=== PATIENT | female | born 1980 | race Caucasian/White ===

== ENCOUNTER 2019-08-10 09:09 | Outpatient (CLI) | payer OTHER, SELFPAY ==
--- NOTE | ~2019-08-10 | MM_ITS ---
EXAMINATION: MM screening [facility] BI w iraj HISTORY: Screening mammogram TECHNIQUE: Craniocaudal and mediolateral oblique 3-D tomosynthesis images were obtained and synthetic 2-D images were generated. CAD analysis was submitted and interpreted. COMPARISON: Comparison to multiple prior studies sequentially, with oldest reviewed study dated 07/2010. BREAST PARENCHYMAL COMPOSITION: There are scattered areas of fibroglandular density. FINDINGS: There is no evidence of suspicious mass, calcification, or architectural distortion to sugg est malignancy in either breast. There has been no suspicious interval change. IMPRESSION: 1. No mammographic evidence of malignancy. 2. Recommend routine screening mammography in one year. BI-RADS Category 1: Negative Reviewed, dictated and finalized at location A.
== END 2019-08-10 09:10 | disposition home or self-care (01) ==
LOC: ANHIMG 09:15
PROVIDERS: PCP Emergency Medicine; Visit Provider Physician Assistant
DX: Z12.31 Encounter for screening mammogram for malignant neoplasm of breast (principal)
CPT/HCPCS: 77063; 77067

== ENCOUNTER 2020-08-11 09:25 | Outpatient (CLI) | payer OTHER, SELFPAY ==
--- NOTE | ~2020-08-11 | MM_ITS ---
EXAMINATION: MM screening [facility] w [facility]aj HISTORY: Screening TECHNIQUE: Craniocaudal and mediolateral oblique 3-D tomosynthesis images were obtained and synthetic 2-D images were generated. CAD analysis was submitted and interpreted. COMPARISON: Comparison to multiple prior studies sequentially, with oldest reviewed study dated 04/2019. BREAST PARENCHYMAL COMPOSITION: The breasts are heterogeneously dense, which may obscure small masses . FINDINGS: There is no evidence of suspicious mass, calcification, or architectural distortion to sugg est malignancy in either breast. There has been no suspicious interval change. IMPRESSION: 1. No mammographic evidence of malignancy. 2. Recommend routine screening mammography in one year. BI-RADS Category 1: Negative Reviewed, dictated and finalized at location A.
== END 2020-08-11 09:26 | disposition home or self-care (01) ==
LOC: ANHIMG 09:27
PROVIDERS: PCP Emergency Medicine; Visit Provider Nurse Practitioner Obstetrics & Gynecology
DX: Z12.31 Encounter for screening mammogram for malignant neoplasm of breast (principal)
CPT/HCPCS: 77063; 77067

== ENCOUNTER 2021-07-12 18:21 | Emergency (ER) | payer OTHER, SELFPAY ==
--- NOTE | ~2021-07-12 | XR_ITS ---
EXAMINATION: XR finger 2nd LT min 2V DATE: 07/12/2021 21:11 INDICATION: Left hand second digit foreign body status post removal. TECHNIQUE: 3 views of left hand second digit were obtained. COMPARISON: Radiographs at 6:30 PM FINDINGS: Bone alignment is normal. No fracture. Joint spaces are normal. IMPRESSION: 1. No radiopaque foreign body. Reviewed, dictated and finalized at location A.
--- NOTE | ~2021-07-12 | XR_ITS ---
EXAMINATION: XR finger 2nd LT min 2V DATE: 07/12/2021 18:32 INDICATION: Left hand second digit foreign body. TECHNIQUE: 3 views of left hand second digit were obtained. COMPARISON: None. FINDINGS: Bone alignment is normal. No fracture.Joint spaces are normal. There is a 7 mm linear radio paque foreign body in the distal second digit. IMPRESSION: 1. 7 mm radiopaque foreign body in the distal second digit. Reviewed, dictated and finalized at location A.
[2021-07-12 18:23] VITALS: BP 146/80; PULSE 74; RESP 16; TEMP 36.4; O2SAT 100
--- NOTE | 2021-07-12 19:39 | PC.NURSE ---
Called for room x 1.
[2021-07-12] MEDS: TETANUS,DIPHTHERIA,AC PERTUSSIS ADULT (0.5 ML) BOOSTRIX IM (20:24)
--- NOTE | 2021-07-12 21:35 | ED.SKABFB ---
HPI - Skin/Abscess/Foreign Bdy General Chief complaint: Skin/Abscess/Foreign Body Stated complaint: needle stuck in finger Time Seen by Provider: 07/12/21 19:50 History of Present Illness HPI narrative: Patient is a 41-year-old female who presents ER after getting a sewing needle stuck in her left index finger. She was quilting when it occurred. No numbness or tingling. Does have throbbing pain at the tip of her finger. She is right-hand dominant. 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 Tetanus is not up-to-date. Related Data Allergies Allergy/AdvReac Type Severity Reaction Status Date / Time HYDROCODONE BIT Allergy Mild VOMITING Uncoded 06/17/15 13:00 TRAMADOL HCL Allergy Mild HIVES Uncoded 06/17/15 13:00 Review of Systems Musculoskeletal: Comments: Finger pain without joint swelling or joint pain left second digit. Neurologic: Denies focal weakness and Denies numbness PMFSH Past Medical History Medical History (Updated 07/12/21 @ 21:39 by Darius Mcclellan MD) GERD (gastroesophageal reflux disease) Surgical History Surgical History (Updated 07/12/21 @ 21:39 by Darius Mcclellan MD) History of section Family History Family History (Updated 10/27/17 @ 08:40 by DOCTOR UNKNOWN) Mother Family history of cardiac disorder Social History Social History Smoking status: Former smoker Alcohol intake: current Exam Narrative: GENERAL: Well-appearing, well-nourished, and in no acute distress. HEAD: Normocephalic, atraumatic. EXTREMITIES: Normal range of motion. No edema. Protruding through the nail of the left second digit and palpable mass in the fat pad. Normal range of motion and sensation otherwise. SKIN: Warm, dry, no rash. NEURO: No focal deficits. Alert and oriented x3. PSYCH: Normal mood and affect. Course Course Emergency Course: Tolerated removal of foreign body. Tetanus updated. Patient also given a dose of antibiotic. Vital Signs Vital signs: Vital Signs Temperature 97.5 F L 07/12/21 18:23 Pulse Rate 74 07/12/21 18:23 Respiratory Rate 16 07/12/21 18:23 Blood Pressure 146/80 H 07/12/21 18:23 Pulse Oximetry 100 07/12/21 18:23 Temperature 97.5 F L 07/12/21 18:23 Pulse Rate 74 07/12/21 18:23 Respiratory Rate 16 07/12/21 18:23 Blood Pressure 146/80 H 07/12/21 18:23 Pulse Oximetry 100 07/12/21 18:23 Procedures Foreign Body Removal Foreign Body #1: Foreign Body Removal Date: 07/12/21 Foreign Body Removal Time: 20:50 Site: left and other (finger) Description of foreign body: needle Sedation/Analgesia: other (lidocain 1% digital block (1ml)) Technique: removal with forceps Confirmed by:: radiograph Complications: none MDM - Skin/Abscess/Foreign Bdy Imaging Data Radiologist's impression: ITS Impressions Finger X-Ray 07/12/21 18:33 IMPRESSION: 1. 7 mm radiopaque foreign body in the distal second digit. Finger X-Ray 07/12/21 21:15 IMPRESSION: 1. No radiopaque foreign body. Discharge Plan Discharge Clinical Impression: Foreign body finger Patient Disposition: Home, Self-Care Condition: Stable Instructions: Puncture Wound (ED) Additional Instructions: You had a foreign body in your left index finger. It was removed. You are being started on antibiotics to prevent infection. If your finger is red and hot, it is draining pus, or you have streaking up your arm please return to the ER. Prescriptions: New cephalexin 500 mg capsule 500 mg PO Q12H Qty: 14 RF: 0 Follow-up/Referrals: Willam,Shen Logan MD [Primary Care Provider] -
[2021-07-12] MEDS: CEPHALEXIN 500 MG CAPSULE PO (21:50)
== END 2021-07-12 21:54 | disposition home or self-care (01) ==
PROVIDERS: Emergency Provider Emergency Medicine; PCP Emergency Medicine
DX: S61.241A Puncture wound with foreign body of left index finger without damage to nail, initial encounter (principal); K21.9 Gastro-esophageal reflux disease without esophagitis; Z23 Encounter for immunization; Z87.891 Personal history of nicotine dependence; W27.3XXA Contact with needle (sewing), initial encounter
CPT/HCPCS: 73140; 90471; 90715; 99283; A9270

== ENCOUNTER 2021-09-20 08:38 | Outpatient (CLI) | payer OTHER, SELFPAY ==
--- NOTE | ~2021-09-20 | MM_ITS ---
EXAMINATION: MM screening [facility] BI w iraj HISTORY: Screening mammogram TECHNIQUE: Craniocaudal and mediolateral oblique 3-D tomosynthesis images were obtained and synthetic 2-D images were generated. CAD analysis was submitted and interpreted. COMPARISON: 08/11/2020, 08/10/2019, 02/05/2012 BREAST PARENCHYMAL COMPOSITION: The breasts are heterogeneously dense, which may obscure small masses . FINDINGS: There is no suspicious mass, calcification, or architectural distortion to suggest malignan cy in either breast. There has been no suspicious interval change. IMPRESSION: 1. No mammographic evidence of malignancy. 2. Recommend routine screening mammography in one year. BI-RADS Category 1: Negative Reviewed, dictated and finalized at location A.
== END 2021-09-20 08:39 | disposition home or self-care (01) ==
LOC: ANHIMG 08:39
PROVIDERS: PCP Emergency Medicine; Visit Provider Nurse Practitioner Obstetrics & Gynecology
DX: Z12.31 Encounter for screening mammogram for malignant neoplasm of breast (principal)
CPT/HCPCS: 77063; 77067

== ENCOUNTER 2023-03-13 09:22 | Outpatient (CLI) | payer OTHER, SELFPAY ==
--- NOTE | ~2023-03-13 | MM_ITS ---
EXAMINATION: MM screening [facility] BI w iraj HISTORY: Screening mammogram TECHNIQUE: Craniocaudal and mediolateral oblique 3-D tomosynthesis images were obtained and synthetic 2-D images were generated. CAD analysis was submitted and interpreted. COMPARISON: 09/20/2021, 08/11/2020, 08/10/2019 BREAST PARENCHYMAL COMPOSITION: There are scattered areas of fibroglandular density. FINDINGS: No suspicious mass, calcification, or architectural distortion are identified in either pablito ast to suggest malignancy. There has been no suspicious interval change. IMPRESSION: 1. No mammographic evidence of malignancy. 2. Recommend routine screening mammography in one year. BI-RADS Category 1: Negative Reviewed, dictated and finalized at location A. M ROLLER OPERATOR
== END 2023-03-13 09:23 | disposition home or self-care (01) ==
PROVIDERS: PCP Emergency Medicine; Visit Provider Nurse Practitioner Obstetrics & Gynecology
DX: Z12.31 Encounter for screening mammogram for malignant neoplasm of breast (principal)
CPT/HCPCS: 77063; 77067

== ENCOUNTER 2024-10-26 08:51 | Outpatient (CLI) | payer OTHER, SELFPAY ==
--- NOTE | ~2024-10-26 | MM_ITS ---
EXAMINATION: MM screening [facility] BI w iraj HISTORY: Screening mammogram TECHNIQUE: Craniocaudal and mediolateral oblique 3-D tomosynthesis images were obtained and synthetic 2-D images were generated. CAD analysis was submitted and interpreted. COMPARISON: 03/13/2023, 09/20/2021, 08/11/2020, 08/10/2019 BREAST PARENCHYMAL COMPOSITION:Not Dense. There are scattered areas of fibroglandular density. FINDINGS: No suspicious mass, calcification, or architectural distortion are identified in either breast to suggest malignancy. There has been no suspicious interval change. IMPRESSION: No mammographic evidence of malignancy. Recommend routine screening mammography in one year. BI-RADS Category 1: Negative Reviewed, dictated and finalized at location .
--- OUTSIDE RECORDS SUMMARY | 2024-10-26 09:15 | XMS_ITS | Clinical Summary ---
Author Organization [facility] Address [address] [place] [address] Care Team Providers Care Croze Machine Operator Name Role Phone Shen Quarles MD Primary Care Provider [phone] Source Comments [facility],non-owned Affiliates and Associated Physician Practices is amultiple site organization consisting of ambulatory clinics and hospital sitesin [place], [place], [place] and [place]. This disclosure is being madepursuant to the Care Everywhere program and may not contain all information available regarding this patient. Last updated 17.[facility] kissnofrog Allergies Active Allergy Reactions Criticality Noted Date Comments Cefadroxil Itching,Nausea and/o r Vomiting Medium 03/06/2019 Hydrocodone Itching,Vomiting Medium 10/02/2021 Hydrocodone-Acetaminophen Vomiting Medium 02/26/2021 Oxycodone Itching Low 10/16/2017 Tramadol Itching,Nausea and/o r Vomiting Medium 03/06/2019 Medications * Be aware that medications may not be up to date on this document. Alwaysverify current medications with the patient. amphetamine-dex troamphetamine (ADDERALL) 10 MG tablet Take 10 mg by mouth daily before breakfast 2 Active escitalopram (LEXAPRO) 20 MG tablet Take 20 mg by mouth once daily 2 Active B-D 3CC LUER-PHILIPP SYR 25GX5/8 25G X 5/8 3 ML MISC 1 Each by Injection route every 28 days 2 Active multivitamin daily tablet Take 1 tablet by mouth daily with food Active nitrofurantoin monohyd macro crystals (Macrobid) 100 MG capsule 2 Active Active Problems Problem Noted Date Diagnosed Date Pernicious anemia 10/23/2021 Hypovitaminosis D 10/23/2021 Immunizations Immunization Administration Dates Next Due INFLUENZA VACCINE, QUADR. (F LUZONE; FLULAVAL; FLUARIX; AFLURIA QUADRIVALENT; 6MO+), 0.5 ML (IIV4) 11/23/2017 TDAP, HISTORIC VACCINE 07/12/2021,11/23/2017 Social History Tobacco Use Types Packs/Day Years Used Date Smoking Tobacco: Former Smokeless Tobacco: Never Alcohol Use Standard Drinks/Week Comments Yes 0 (1 standard drink = 0.6 oz pur e alcohol) 2X week PHQ-2 Answer Date Recorded PHQ2 TOTAL SCORE 2 10/02/2021 Comments Unknown Sex and Gender Information Value Date Recorded Sex Assigned at Not on file Legal Sex Female 5:28 PM CDT Gender Identity Not on file Sexual Orientation Not on file Last Filed Vital Signs Vital Sign Reading Time Taken Comments Blood Pressure 108/72 10/23/2021 2:04 PM CDT Pulse 101 10/23/2021 2:04 PM CDT Temperature 36.3 C (97.3 F) 10/23/2021 2:04 PM CDT Respiratory Rate - - Oxygen Saturation 98% 10/23/2021 2:04 PM CDT Inhaled Oxygen Concentration - - Weight 68.2 kg (150 lb 6.4 oz) 10/23/2021 2:04 P M CDT Height 154.9 cm (5' 1) 10/02/2021 8:47 AM CDT Body Mass Index 28.42 10/02/2021 8:47 AM CDT Plan of Treatment Health Maintenance Due Date Last Done Comments COLOGUARD (AGES 45-75) - COL ON CA SCREENING 1979 COLON MONITORING 1979 COLONOSCOPY - COLON CA SCREENING 1979 CT COLONOGRAPHY - COLON CA SCREENING 1979 Colorectal Cancer Screening 1979 FIT - COLON CA SCREENING 1979 FLEX SIG - COLON CA SCREENING 1979 LIPID TESTING 1979 MAMMOGRAM 1979 HIV SCREENING 1994 HEPATITIS C SCREENING 04/29/1997 HEPATITIS B VACCINE (1 of 3 - 19+ 3-dose series) 1998 HPV VACCINE (1 - 3-dose SCDM series) 2006 PAP SMEAR 05/31/2023 05/30/2020, 05/30/2020 COVID-19 VACCINE (4 - 2023-2 5 season) 2023 03/23/2021, 06/12/2020, 05/21/2020 DEPRESSION SCREENING 03/10/2024 10/02/2021 SCREENING FOR DIABETES 10/08/2024 10/08/2021 INFLUENZA VACCINE (#1) 2024 11/23/2017 ZOSTER VACCINE (1 of 2) 2029 DTAP/TDAP/TD VACCINES (3 - T d or Tdap) 07/13/2031 07/12/2021, 11/23/2017 HIB VACCINE Aged Out No longer eligi ble based on patient's age to complete this topic MENINGOCOCCAL (Group B) VACCINE SHARED DECISION-MAKING Aged Out No longer eligible based on patient's age to complete this topic MENINGOCOCCAL GROUPS A/C/Y/W VACCINE Aged Out No longer eligible b ased on patient's age to complete this topic PNEUMOCOCCAL VACCINE Aged Out No long er eligible based on patient's age to complete this topic Procedures Procedure Name Priority Date/Time Associated Diagnosis Comments COMPREHENSIVE METABOLIC PANEL Routine 10/08/2021 10:03 AM CDT Injury of foot or toe, superficial, left, initial encounter Rash Pernicious anemia from Last 3 Months or Most Recently Relevant to Health Maintenance Results * COMPREHENSIVE METABOLIC PANEL (10/08/2021 10:03 AM CDT) Glucose 65 65 - 99 mg/dL [facility] Comment: Fasting reference interval BUN 13 7 - 25 mg/dL [facility] Creatinine 0.71 0.50 - 0.99 mg/dL [facility] eGFR by Cystatin C 109 > OR = 60 mL/min/1. 73m2 [facility] Comment: The eGFR is based on the CKD-EPI 2020 equation. To calculate the new eGFR from a previous Creatinine or Cystatin C result, go to https://www.kidney.org/professionals/ kdoqi/gfr%5Fcalculator BUN/Creatinine Ratio NOT APPLICABLE 6 - (calc) [facility] Sodium 138 135 - 146 mmol/L [facility] Potassium 3.9 3.5 - 5.3 mmol/L [facility] Chloride 104 98 - 110 mmol/L [facility] CO2 26 20 - 32 mmol/L [facility] Calcium 9.2 8.6 - 10.2 mg/dL [facility] Protein Total 7.1 6.1 - 8.1 g/dL [facility] Albumin 4.2 3.6 - 5.1 g/dL [facility] Globulin Total 2.9 1.9 - 3.7 g/dL (calc) [facility] Albumin/Globuli n Ratio 1.4 1.0 - 2.5 (calc) [facility] Bilirubin Total 0.3 0.2 - 1.2 mg/dL [facility] Alkaline Phosphatase 47 31 - 125 U/L [facility] AST 16 10 - 30 U/L [facility] ALT 15 6 - 29 U/L [facility] Comment: Test Performed at: [facility] [address] [place] [address] MEIR REDD DO,MPH Blood BLOOD SPECIMEN / Unknown 10/08/2021 10:03 AM CDT 10/08/2021 10:03 AM CDT us Fabiola Coleman MD LAB - CHEMISTRY ORDERAB LES Final Result Performing Organization Address City/State/[facility] Co de Phone Number [facility] [address] [place] [address] from Last 3 Months or Most Recently Relevant to Health Maintenance [facility] Care Teams Croze Machine Operator Relationship Specialty Start Date End Date Shen Quarles MD PCP - General 10/22/18
--- OUTSIDE RECORDS SUMMARY | 2024-10-26 09:15 | XMS_ITS | Encounter Summary ---
Author Organization [facility] Address [address] [place] [address] Phone Care Team Providers Care Gis Software Engineer Name Role Phone Shen Quarles Primary Care Provider [phone] Gilbert Lara MD Unavailable [phone] Encounter Details Date Type Department Care Team (Late st Contact Info) Description 10/17/2021 Telephone [facility] [address] [address] Gilbert Lara MD [address] [address] Social History Tobacco Use Types Packs/Day Years Used Date Smoking Tobacco: Never Smokeless Tobacco: Never Alcohol Use Standard Drinks/Week Comments Yes 0 (1 standard drink = 0.6 oz pur e alcohol) 4 x time per week PHQ-2 Answer Date Recorded Total Score - Questions 1-9 0 05/09 Sexually Active Control Partners Comments Yes Comments Unknown Sex and Gender Information Value Date Recorded Sex Assigned at Not on file Legal Sex Female 1:14 PM K 9 POLICE OFFICER Gender Identity Not on file Sexual Orientation Not on file documented as of this encounter Miscellaneous Notes * Telephone Encounter - Melinda Torres RN - 10/17/2021 2:44 PM CDT Images from the original note were not included. , Gilbert Sims MD; [facility] Nurse Pool 45 minutes ago (1:58 PM) TD Spoke with pt she is aware she needs to reach out to her PCP for the referral. Message text * Telephone Encounter - Gilbert Lara MD - 10/17/2021 1:33 PM CDT She has t ask her pcp for referral * Telephone Encounter - Roselia Morales - 10/17/2021 11:40 AM CDT Pt called and stated that she was not happy with the Telephone Operators Supervisor at [facility] and would like a referral to Dr Harjinder Cervantes at [facility].. Please place and I will fax everything over if you are okay with it. documented in this encounter Plan of Treatment Upcoming Encounters Date Type Department Care Team (Late st Contact Info) Description 11/01/2024 11:45 AM CDT Clinical Support [facility] [address] [address] Nurse, [facility] 11/29/2024 11:45 AM CDT Clinical Support [facility] [address] [address] Nurse, [facility] 12/27/2024 11:45 AM CDT Clinical Support [facility] [address] [address] Nurse, [facility] 01/24/2025 11:45 AM K 9 POLICE OFFICER Clinical Support [facility] [address] [address] Nurse, [facility] 02/21/2025 11:45 AM K 9 POLICE OFFICER Clinical Support [facility] [address] [address] Nurse, [facility] 03/21/2025 11:45 AM K 9 POLICE OFFICER Clinical Support [facility] [address] [address] Nurse, [facility] 04/18/2025 11:45 AM K 9 POLICE OFFICER Clinical Support [facility] [address] [address] Nurse, [facility] 05/16/2025 11:45 AM CDT Clinical Support [facility] [address] [address] Nurse, [facility] 06/09/2025 11:30 AM CDT Lab [facility] [address] [address] Lab, [facility] 06/09/2025 11:45 AM CDT Office Visit [facility] [address] [phone] Gilbert Lara MD [address] [place] [id number] documented as of this encounter Visit Diagnoses Not on filedocumented in this encounter Care Teams Gis Software Engineer Relationship Specialty Start Date End Date QuarlesShen [address] [place] [address] PCP - General Family Medicine 02/13/21 Gilbert Lara MD [address] [place], [place] [phone] Consulting Physician Oncology 02/13/21 documented as of this encounter
--- OUTSIDE RECORDS SUMMARY | 2024-10-26 09:15 | XMS_ITS | Clinical Summary ---
Author Organization [employer] Address [address] Attn: Epic Prelude ADT MONIKA GAITAN [address] Care Team Providers Care Political Science Faculty Member Name Role Phone Conversion, History Primary Care Provider Vikash medeiros Social History Tobacco Use Types Packs/Day Years Used Date Smoking Tobacco: Never Assessed Comments Unknown Sex and Gender Information Value Date Recorded Sex Assigned at Not on file Legal Sex Female 5:02 AM CORPORATE BANKING OFFICER Gender Identity Not on file Sexual Orientation Not on file Plan of Treatment Health Maintenance Due Date Last Done Comments HPV VACCINES (1 - 3-dose series) 1994 DTAP/TDAP/TD VACCINES (1 - Tdap) 1998 HEPATITIS B VACCINES (1 of 3 - 19+ 3-dose series) 04/11 HPV/Cotest (21-29) 2000 CERVICAL CANCER SCREENING 2009 HPV/Cotest (30-65) 2009 PAP SMEAR 2009 BREAST CANCER SCREENING 2019 COLORECTAL SCREENING 2024 Colorectal Cancer Screening 2024 FIT-DNA Q 3 years 2024 FIT/FOBT Q 1 year 2024 Flex Sig/CT Colonography Q 5 years 2024 INFLUENZA VACCINE (#1) 2024 Care Teams Political Science Faculty Member Relationship Specialty Start Date End Date Conversion, History PCP - General 11/04/06
--- OUTSIDE RECORDS SUMMARY | 2024-10-26 09:15 | XMS_ITS | Encounter Summary ---
Author Organization [facility] Address [address] [place] [address] Phone Care Team Providers Care Pipe Assembly Worker Name Role Phone Shen Quarles Primary Care Provider [phone] Gilbert Lara MD Unavailable Reason for Visit * Reason Comments Medication Refill Encounter Details Date Type Department Care Team (Late st Contact Info) Description 11/25/2021 Refill [facility] [address] [phone] Gilbert Lara MD [address] [facility] [address] [address] Medication Refill Social History Tobacco Use Types Packs/Day Years Used Date Smoking Tobacco: Never Smokeless Tobacco: Never Alcohol Use Standard Drinks/Week Comments Yes 0 (1 standard drink = 0.6 oz pur e alcohol) 4 x time per week PHQ-2 Answer Date Recorded Total Score - Questions 1-9 0 11/08 Sexually Active Control Partners Comments Yes Comments Unknown Sex and Gender Information Value Date Recorded Sex Assigned at Not on file Legal Sex Female 1:14 PM TRAY DELIVERY AIDE Gender Identity Not on file Sexual Orientation Not on file COVID-19 Exposure Response Date Recorded In the last 10 days, have yo u been in contact with someone who was confirmed or suspected to have Coronavirus/COVID-19? No / Unsure 11/26/2021 12:58 PM CDT documented as of this encounter Miscellaneous Notes * Telephone Encounter - Alexey Mejia RN - 11/26/2021 9:10 AM CDT Please refill if appropriate. documented in this encounter Plan of Treatment Upcoming Encounters Date Type Department Care Team (Late st Contact Info) Description 11/01/2024 11:45 AM CDT Clinical Support [facility] [address] [address] Nurse, [facility] 11/29/2024 11:45 AM CDT Clinical Support [facility] [address] [address] Nurse, [facility] 12/27/2024 11:45 AM CDT Clinical Support [facility] [address] [address] Nurse, [facility] 01/24/2025 11:45 AM TRAY DELIVERY AIDE Clinical Support [facility] [address] [address] Nurse, [facility] 02/21/2025 11:45 AM TRAY DELIVERY AIDE Clinical Support [facility] [address] [address] Nurse, [facility] 03/21/2025 11:45 AM TRAY DELIVERY AIDE Clinical Support [facility] [address] [address] Nurse, [facility] 04/18/2025 11:45 AM TRAY DELIVERY AIDE Clinical Support [facility] [address] [address] Nurse, [facility] 05/16/2025 11:45 AM CDT Clinical Support [facility] [address] [address] Nurse, [facility] 06/09/2025 11:30 AM CDT Lab [facility] [address] [address] Lab, [facility] 06/09/2025 11:45 AM CDT Office Visit [facility] [address] [phone] Gilbert Lara MD [address] [place], [place] [address] documented as of this encounter Visit Diagnoses Diagnosis B12 deficiency Other B-complex deficiencies documented in this encounter Care Teams Pipe Assembly Worker Relationship Specialty Start Date End Date Shen Quarles [address] [place] [address] PCP - General Family Medicine 02/13/21 Gilbert Lara MD [address] [place], [place] [phone] Consulting Physician Oncology 02/13/21 documented as of this encounter
--- OUTSIDE RECORDS SUMMARY | 2024-10-26 09:15 | XMS_ITS | Encounter Summary ---
Author Organization [employer] Address [address] [place] [address] Care Team Providers Care Transportation Technician Name Role Phone Conversion, History Primary Care Provider Vikash medeiros Encounter Details Date Type Department Care Team (Late st Contact Info) Description 11/04/2006 Inpatient Historical HIS OB PREADMIT Katerin Angelo MD [address] [place] [address] Waldo Jack MD [address] [facility] [address] [address] Obst by Malpos-Delivery (Primary Dx) Social History Tobacco Use Types Packs/Day Years Used Date Smoking Tobacco: Never Assessed Comments Unknown Sex and Gender Information Value Date Recorded Sex Assigned at Not on file Legal Sex Female 5:02 AM BI DEVELOPER Gender Identity Not on file Sexual Orientation Not on file documented as of this encounter Plan of Treatment Not on file documented as of this encounter Procedures Procedure Name Priority Date/Time Associated Diagnosis Comments CBC WITH DIFFERENTIAL Routine 11/05/2006 7:25 AM CDT CBC WITH DIFFERENTIAL Routine 11/05/2006 7:25 AM CDT documented in this encounter Results * (ABNORMAL) CBC WITH DIFFERENTIAL (11/05/2006 7:25 AM CDT) NEUTROPHILS 84(H) 45 - 70 % INTERFAC E SYSTEM LYMPHOCYTES 9(L) 16 - 45 % INTERFAC E SYSTEM MONOCYTES 6 3 - 13 % INTERFACE SYSTEM EOSINOPHILS 0 0 - 7 % INTERFAC E SYSTEM BASOPHILS 0 0 - 2 % INTERFACE SYSTEM NEUTROPHIL ABSOLUTE 12.10(H) 1.90 - 7.00 K/uL INTERFACE SYSTEM LYMPHOCYTE ABSOLUTE 1.33 0.70 - 4.50 K/uL INTERFACE SYSTEM MONOCYTE ABSOLUTE 0.89 0.10 - 1.30 K/uL INTERFACE SYSTEM EOSINOPHIL ABSOLUTE 0.01 0.00 - 0.70 K/uL INTERFACE SYSTEM BASOPHILS ABSOLUTE 0.02 0.00 - 0.20 K/uL INTERFACE SYSTEM 11/05/2006 7:25 AM CDT Waldo Jack MD HEMATOLOGY ORDERABLES Edited INTERFACE SYSTEM Refer to clinic/hospital department * (ABNORMAL) CBC WITH DIFFERENTIAL (11/05/2006 7:25 AM CDT) WBC 14.4(H) 4.0 - 9.8 K/uL INTERFACE SYSTEM RBC 4.09 3.90 - 4.90 M/uL INTERFACE SYSTEM HEMOGLOBIN 11.4(L) 11.8 - 14.8 g/dL INTERFACE SYSTEM HEMATOCRIT 34.3(L) 35.5 - 44.0 % INTERFACE SYSTEM MCV 83.9 82.0 - 99.0 fL INTERFACE SYSTEM MCH 27.9 27.2 - 32.6 pg INTERFACE SYSTEM MCHC 33.2 31.5 - 35.5 % INTERFACE SYSTEM RDW 14.8(H) 11.5 - 14.5 % INTERFACE SYSTEM RDW-STDEV 44.6 37.1 - 48.7 fL INTERFACE SYSTEM PLATELETS 244 140 - 350 K/uL INTERFACE SYSTEM MPV 11.3 9.3 - 12.4 fL INTERFACE SYSTEM 11/05/2006 7:25 AM CDT Waldo Jack MD HEMATOLOGY ORDERABLES Edited INTERFACE SYSTEM Refer to clinic/hospital department documented in this encounter Visit Diagnoses Diagnosis Obstruction caused by malposition of fetus at onset of labor, delivered(660.01)- Primary Obstruction caused by malposition of fetus at onset of labor, delivered documented in this encounter Care Teams Transportation Technician Relationship Specialty Start Date End Date Conversion, History PCP - General 11/04/06 documented as of this encounter
--- OUTSIDE RECORDS SUMMARY | 2024-10-26 09:15 | XMS_ITS | Encounter Summary ---
Author Organization [employer] Address [address] [place] [address] Care Team Providers Care Mis Manager Name Role Phone Conversion, History Primary Care Provider Vikash medeiros Encounter Details Date Type Department Care Team (Latest Contact Info) Description 11/04/2006 Outpatient Historical HIS PATIENT IN A BED Mayer, Waldo Cole MD [address] [place] [address] Other Threatened Labor, Antepartum (Primary Dx) Social History Tobacco Use Types Packs/Day Years Used Date Smoking Tobacco: Never Assessed Comments Unknown Sex and Gender Information Value Date Recorded Sex Assigned at Not on file Legal Sex Female 5:02 AM JET WIPER Gender Identity Not on file Sexual Orientation Not on file documented as of this encounter Plan of Treatment Not on file documented as of this encounter Visit Diagnoses Diagnosis Other threatened labor, antepartum- Primary documented in this encounter Care Teams Mis Manager Relationship Specialty Start Date End Date Conversion, History PCP - General 11/04/06 documented as of this encounter
--- OUTSIDE RECORDS SUMMARY | 2024-10-26 09:15 | XMS_ITS | Clinical Summary ---
Author Organization [facility] Address [address] [place] [address] Phone Care Team Providers Care Hydroelectric Station Operator Chief Name Role Phone Shen Quarles Primary Care Provider [phone] Gilbert Lara MD Unavailable [phone] Allergies Active Allergy Reactions Criticality Noted Date Comments Cefadroxil Itching High 03/06/2019 Oxycodone Anxiety Low 10/16/2017 Tramadol Itching 03/06/2019 And nausea Hydrocodone-Acetaminophen Vomiting 02/26/2021 Medications amphetamine-dext roamphetamine (ADDERALL) 10 MG Tablet 1 Active escitalopram (LEXAPRO) 20 MG Tablet 1 Active Nutritional Supplements (JUICE PLUS FIBRE PO) Take by mouth. Activ e Cyanocobalamin (B-12 Compliance Injection) 1000 MCG/ML Kit 1,000 mcg by Injection route every 14 days. 6 Kit 2 Active Vitamin D3 (CHOLECALCIFEROL ) 125 MCG Tablet Take 1 tablet every day by oral route. Active Biotin 10 MG Capsule Take 1 capsule every day by oral route as directed. Active spironolactone (ALDACTONE) 50 MG Tablet Take 1 Tablet by mouth daily. 4 Active Active Problems Problem Noted Date Diagnosed Date Pernicious anemia 11/26/2021 B12 deficiency 05/28/2021 Positive SYDNEY (antinuclear antibody) 05/28/2021 Neutropenia 02/26/2021 Encounters Date Type Department Care Team Description 10/04/2024 11:45 AM CDT Clinical Support [facility] [address] [place] [phone] Nurse, Cc [place] Other neutropenia (HCC) (Primary Dx) 10/04/2024 Travel 09/06/2024 11:45 AM CDT Clinical Support [facility] [address] [phone] Nurse, Cc [place] Other neutropenia (HCC) (Primary Dx) 09/06/2024 Travel 08/09/2024 11:45 AM CDT Clinical Support [facility] [address] [phone] Nurse, Cc [place] Other neutropenia (HCC) (Primary Dx) 08/09/2024 Travel from Last 3 Months Family History Relation Name Status Comments Brother Alive Mother Alive Social History Tobacco Use Types Packs/Day Years Used Date Smoking Tobacco: Never Smokeless Tobacco: Never Tobacco Cessation:Counseling Given: Not Answered Alcohol Use Standard Drinks/Week Comments Yes 0 (1 standard drink = 0.6 oz pur e alcohol) 4 x time per week PHQ-2 Answer Date Recorded Total Score - Questions 1-9 0 11/08 Sexually Active Control Partners Comments Yes Comments Unknown Sex and Gender Information Value Date Recorded Sex Assigned at Not on file Legal Sex Female 1:14 PM ANALYSIS MGR Gender Identity Not on file Sexual Orientation Not on file Last Filed Vital Signs Vital Sign Reading Time Taken Comments Blood Pressure 100/80 06/10/2024 1:01 PM CDT Pulse 101 06/10/2024 1:01 PM CDT Temperature 36.7 C (98 F) 06/10/2024 1:01 PM CDT Respiratory Rate 16 06/10/2024 1:01 PM CDT Oxygen Saturation 97% 06/10/2024 1:01 PM CDT Inhaled Oxygen Concentration - - Weight 67.3 kg (148 lb 4.8 oz) 06/10/2024 1:01 P M CDT Height 154.9 cm (5' 1) 06/10/2024 1:01 PM CDT Body Mass Index 28.02 06/10/2024 1:01 PM CDT Plan of Treatment Upcoming Encounters Date Type Department Care Team (Late st Contact Info) Description 11/01/2024 11:45 AM CDT Clinical Support [facility] [address] [address] Nurse, [facility] 11/29/2024 11:45 AM CDT Clinical Support [facility] [address] [address] Nurse, [facility] 12/27/2024 11:45 AM CDT Clinical Support [facility] [address] [address] Nurse, [facility] 01/24/2025 11:45 AM ANALYSIS MGR Clinical Support [facility] [address] [address] Nurse, [facility] 02/21/2025 11:45 AM ANALYSIS MGR Clinical Support [facility] [address] [address] Nurse, [facility] 03/21/2025 11:45 AM ANALYSIS MGR Clinical Support [facility] [address] [address] Nurse, [facility] 04/18/2025 11:45 AM ANALYSIS MGR Clinical Support [facility] [address] [address] Nurse, [facility] 05/16/2025 11:45 AM CDT Clinical Support [facility] [address] [address] Nurse, [facility] 06/09/2025 11:30 AM CDT Lab [facility] [address] [address] Lab, [facility] 06/09/2025 11:45 AM CDT Office Visit [facility] [address] [phone] Gilbert Lara MD [address] [address] Health Maintenance Due Date Last Done Comments Mammogram 1979 Hepatitis B Immunization (1 of 3 - 19+ 3-dose series) 1998 Pneumococcal Immunization Combined (1 of 2 - PCV) 1998 Pap Smear 2000 Human Papillomavirus (HPV) Immunization (1 - 3-dose SCDM series) 2006 Cervical Cancer Screening ([facility]) 2009 HPV/Cotest 2009 Discussion re Starting/Frequency of Mammograms 2019 SARS-COV-2 Immunization ( season) 2023 03/23/2021, 06/12/2020, 05/21/2020 Cologuard 2024 Immunochemical Fecal Occult Blood 2024 Influenza Immunization (#1) 2024 11/23/2017 Colonoscopy 02/07/2032 02/06/2022, 03/09/2021 Colorectal Cancer Screening 02/07/2032 Respiratory Syncytial Virus (RSV) Immunization (Adult) (1 - 1-dose 75+ series) 2054 Hepatitis C Virus (HCV) Screening Completed 02/26/2021 DTaP/Tdap/Td Immunization Discontinued 2021, 11/23/2017 TdaP Immunization Completed 07/12/2021, 11/23/2017 Meningococcal Immunization (ACWY) Aged Out No longer eligible based on patient's age to complete this topic Rotavirus Immunization Aged Out No lo nger eligible based on patient's age to complete this topic Procedures Procedure Name Priority Date/Time Associated Diagnosis Comments HEPATITIS C ANTIBODY Routine 02/26/2021 1:47 PM ANALYSIS MGR Neutropenia, unspecified type (HCC) from Last 3 Months or Most Recently Relevant to Health Maintenance Results * HEPATITIS C ANTIBODY (02/26/2021 1:47 PM ANALYSIS MGR) HEPATITIS C VIRUS AB SIGNAL CUTOFF <0.1 0.0 - 0.9 S/CO R[facility] HEPATITIS C VIRUS AB COMMENT [facility] Comment: NEGATIVE NOT INFECTED WITH HCV, UNLESS RECENT INFECTION IS SUSPECTED OR OTHER EVIDENCE EXISTS TO INDICATE HCV INFECTION. Blood 02/26/2021 1:47 PM ANALYSIS MGR Narrative [facility] - 02/27/2021 10:07 AM ANALYSIS MGR TEST[facility] PERFORMED AT: [] [facility], [address] [place] [address], [place], [address], PHONE: [phone], TURF AND GROUNDS SUPERVISOR: SHIREEN SUTHERLAND, PHD Release to patient->Immediate us Gilbert Lara MD CHEMISTRY ORDERABLES Final R esult [facility] from Last 3 Months or Most Recently Relevant to Health Maintenance Insurance [employer] Care Teams Hydroelectric Station Operator Chief Relationship Specialty Start Date End Date Shen Quarles [facility] [place] [address] PCP - General Family Medicine 02/13/21 Gilbert Lara MD [address] [place] [address] Consulting Physician Oncology 02/13/21
--- OUTSIDE RECORDS SUMMARY | 2024-10-26 09:15 | XMS_ITS | Patient Health Record ---
Author Organization [facility] Address [address] [place] [address] [address] [place] [address] Support Name Relationship Address Phone Levi Ta Guarantor Unknown [phone] Reason For Referral No Information Plan Of Treatment No Information Insurance Providers Payer Name Payer Address Payer Phone Subscriber Number Group Number Insured Name Patient Relationship to Insured Coverage Start Date Coverage End Date [facility] [address] [address] [place] [address] [phone] [id number] [place] Spouse - patient is the spouse of the insured 3
== END 2024-10-26 08:52 | disposition home or self-care (01) ==
LOC: ANHFOHIMG 08:52
PROVIDERS: PCP Emergency Medicine; Visit Provider Obstetrics & Gynecology
DX: Z12.31 Encounter for screening mammogram for malignant neoplasm of breast (principal)
CPT/HCPCS: 77063; 77067